=== PATIENT | male | born 1950 | race Caucasian/White ===

== ENCOUNTER 2022-06-11 10:15 | Outpatient (CLI) | payer MEDICARE | END 2022-06-11 10:16 | disposition home or self-care (01) | LOC: CSHWCC 10:15 | PROVIDERS: ATTEND Nurse Practitioner Family | DX: N30.40 Irradiation cystitis without hematuria (principal) | CPT/HCPCS: 97139; G0463; 99203 ==

== ENCOUNTER 2023-01-24 08:59 | Outpatient (CLI) | payer MEDICARE, OTHER | END 2023-01-24 09:00 | disposition home or self-care (01) | LOC: CSHWCC 08:59 | PROVIDERS: ATTEND Nurse Practitioner Family | DX: N30.40 Irradiation cystitis without hematuria (principal) | CPT/HCPCS: 97139; G0463; 99212 ==

== ENCOUNTER 2023-01-31 13:02 | Outpatient (CLI) | payer MEDICARE, OTHER | END 2023-01-31 13:03 | disposition home or self-care (01) | LOC: CSHWCC 13:02 | PROVIDERS: ATTEND Nurse Practitioner Family | DX: N30.40 Irradiation cystitis without hematuria (principal) | CPT/HCPCS: 97139; G0277 ==

== ENCOUNTER 2023-02-04 11:18 | Outpatient (CLI) | payer MEDICARE, OTHER | END 2023-02-04 11:19 | disposition home or self-care (01) | LOC: CSHWCC 11:18 | PROVIDERS: ATTEND Nurse Practitioner Family | DX: N30.40 Irradiation cystitis without hematuria (principal) | CPT/HCPCS: 97139; G0277 ==

== ENCOUNTER 2023-02-06 11:26 | Outpatient (CLI) | payer MEDICARE, OTHER | END 2023-02-06 11:27 | disposition home or self-care (01) | LOC: CSHWCC 11:26 | PROVIDERS: ATTEND Nurse Practitioner Family | DX: N30.40 Irradiation cystitis without hematuria (principal) ==

== ENCOUNTER 2023-02-07 12:54 | Outpatient (CLI) | payer MEDICARE, OTHER | END 2023-02-07 12:55 | disposition home or self-care (01) | LOC: CSHWCC 12:54 | PROVIDERS: ATTEND Nurse Practitioner Family | DX: N30.40 Irradiation cystitis without hematuria (principal) | CPT/HCPCS: 97139; G0277 ==

== ENCOUNTER 2023-02-11 13:00 | Outpatient (CLI) | payer MEDICARE, OTHER | END 2023-02-11 13:01 | disposition home or self-care (01) | LOC: CSHWCC 13:00 | PROVIDERS: ATTEND Nurse Practitioner Family | DX: N30.40 Irradiation cystitis without hematuria (principal) | CPT/HCPCS: 97139; G0277 ==

== ENCOUNTER 2023-02-13 12:27 | Outpatient (CLI) | payer MEDICARE, OTHER | END 2023-02-13 12:28 | disposition home or self-care (01) | LOC: CSHWCC 12:27 | PROVIDERS: ATTEND Nurse Practitioner Family | DX: N30.40 Irradiation cystitis without hematuria (principal) | CPT/HCPCS: 97139; G0277 ==

== ENCOUNTER 2023-02-17 09:18 | Outpatient (CLI) | payer MEDICARE, OTHER | END 2023-02-17 09:19 | disposition home or self-care (01) | LOC: CSHWCC 09:18 | PROVIDERS: ATTEND Nurse Practitioner Family | DX: N30.40 Irradiation cystitis without hematuria (principal) | CPT/HCPCS: 97139; G0277 ==

== ENCOUNTER 2023-02-18 08:06 | Outpatient (CLI) | payer MEDICARE, OTHER | END 2023-02-18 08:07 | disposition home or self-care (01) | LOC: CSHWCC 08:06 | PROVIDERS: ATTEND Nurse Practitioner Family | DX: N30.40 Irradiation cystitis without hematuria (principal) ==

== ENCOUNTER 2023-02-19 08:02 | Outpatient (CLI) | payer MEDICARE, OTHER | END 2023-02-19 08:03 | disposition home or self-care (01) | LOC: CSHWCC 08:02 | PROVIDERS: ATTEND Nurse Practitioner Family | DX: N30.40 Irradiation cystitis without hematuria (principal) ==

== ENCOUNTER 2023-02-20 08:02 | Outpatient (CLI) | payer MEDICARE, OTHER | END 2023-02-20 08:03 | disposition home or self-care (01) | LOC: CSHWCC 08:02 | PROVIDERS: ATTEND Nurse Practitioner Family | DX: N30.40 Irradiation cystitis without hematuria (principal) ==

== ENCOUNTER 2023-02-21 08:01 | Outpatient (CLI) | payer MEDICARE, OTHER | END 2023-02-21 08:02 | disposition home or self-care (01) | LOC: CSHWCC 08:01 | PROVIDERS: ATTEND Nurse Practitioner Family | DX: N30.40 Irradiation cystitis without hematuria (principal) | CPT/HCPCS: 97139; G0277 ==

== ENCOUNTER 2023-02-24 14:47 | Outpatient (CLI) | payer MEDICARE, OTHER | END 2023-02-24 14:48 | disposition home or self-care (01) | LOC: CSHWCC 14:47 | PROVIDERS: ATTEND Nurse Practitioner Family | DX: N30.40 Irradiation cystitis without hematuria (principal) ==

== ENCOUNTER 2023-02-25 08:02 | Outpatient (CLI) | payer MEDICARE, OTHER | END 2023-02-25 08:03 | disposition home or self-care (01) | LOC: CSHWCC 08:02 | PROVIDERS: ATTEND Nurse Practitioner Family | DX: N30.40 Irradiation cystitis without hematuria (principal) ==

== ENCOUNTER 2023-03-04 08:06 | Outpatient (CLI) | payer MEDICARE, OTHER | END 2023-03-04 08:07 | disposition home or self-care (01) | LOC: CSHWCC 08:06 | PROVIDERS: ATTEND Nurse Practitioner Family | DX: N30.40 Irradiation cystitis without hematuria (principal) | CPT/HCPCS: 97139; G0277 ==

== ENCOUNTER 2023-03-05 07:52 | Outpatient (CLI) | payer MEDICARE, OTHER | END 2023-03-05 07:53 | disposition home or self-care (01) | LOC: CSHWCC 07:52 | PROVIDERS: ATTEND Nurse Practitioner Family | DX: N30.40 Irradiation cystitis without hematuria (principal) | CPT/HCPCS: 97139; G0277 ==

== ENCOUNTER 2023-03-06 08:08 | Outpatient (CLI) | payer MEDICARE, OTHER | END 2023-03-06 08:09 | disposition home or self-care (01) | LOC: CSHWCC 08:08 | PROVIDERS: ATTEND Nurse Practitioner Family | DX: N30.40 Irradiation cystitis without hematuria (principal) ==

== ENCOUNTER 2023-03-07 08:09 | Outpatient (CLI) | payer MEDICARE, OTHER | END 2023-03-07 08:10 | disposition home or self-care (01) | LOC: CSHWCC 08:09 | PROVIDERS: ATTEND Nurse Practitioner Family | DX: N30.40 Irradiation cystitis without hematuria (principal) | CPT/HCPCS: G0277 ==

== ENCOUNTER 2023-03-10 14:35 | Outpatient (CLI) | payer MEDICARE, OTHER | END 2023-03-10 14:36 | disposition home or self-care (01) | LOC: CSHWCC 14:35 | PROVIDERS: ATTEND Nurse Practitioner Family | DX: N30.40 Irradiation cystitis without hematuria (principal) ==

== ENCOUNTER 2024-05-19 08:50 | Outpatient (CLI) | payer MEDICARE | END 2024-05-19 08:51 | disposition home or self-care (01) | LOC: CSHWCC 08:50 | PROVIDERS: ATTEND Nurse Practitioner Family | DX: N30.41 Irradiation cystitis with hematuria (principal) | CPT/HCPCS: 99213; G0463 ==